=== PATIENT | female | born 1990 | race Hispanic/Latino ===

== ENCOUNTER 2017-03-25 19:31 | Emergency (ER) | payer OTHER ==
[2017-03-25 19:44] VITALS: O2SAT 98
[2017-03-25] MEDS ORDERED: Sodium Chloride 0.9% 1,000 ML IV STA (20:18)
--- NOTE | 2017-03-25 21:21 | ED PDOC ---
HPI: Abdomen Time Seen by Provider: 03/25/17 19:47 Chief Complaint (Nursing): Abdominal Pain Chief Complaint (Provider): Abdominal Pain History Per: Patient Onset/Duration Of Symptoms: Days (x5) Current Symptoms Are (Timing): Still Present Additional Complaint(s): Siena Gallegos is a 26 year old female with a past medical history of ovarian cysts , who presents to the ED complaining of left pelvic pain x5 days. Patient states the pain is persistent, severe, and associated with epigastric pain and nausea. States she has had similar pain in the past on her left or right side due to ovarian cysts, but is concerned due to the associated epigastric pain and nausea. Also reports intermittent diarrhea and dysuria. Denies vaginal bleeding or discharge. States her LMP was 03/04. Says it was a week late and longer than usual. Reports seeing her COMPOSITION PROFESSOR last week and was told everything is normal. PMD: Non-[facility] Provider Past Medical History Reviewed: Historical Data, Nursing Documentation, Vital Signs Vital Signs: Last Vital Signs Temp 98 F 03/25/17 23:45 Pulse 78 03/25/17 23:45 Resp 18 03/25/17 23:45 BP 122/80 03/25/17 23:45 Pulse Ox 98 03/26/17 00:29 - Medical History Other PMH: Ovarian cysts - Surgical History Surgical History: No Surg Hx - Family History Family History: States: Hypertension Other Family History: Ovarian cysts - Social History Current smoker - smoking cessation education provided: No Alcohol: None Drugs: Denies - Home Medications Home Medications: Ambulatory Orders Medication Instructions Recorded Dicyclomine [Bentyl] 10 mg PO QID PRN #10 cap 05/04/16 Ondansetron ODT [Zofran ODT] 4 mg PO Q6 PRN #10 odt 05/04/16 Ondansetron ODT [Zofran ODT] 1 odt PO Q6 PRN #20 odt 03/26/17 - Allergies Allergies/Adverse Reactions: Allergies Allergy/AdvReac Type Severity Reaction Status Date / Time No Known Allergies Allergy Verified 05/03/16 21:25 Review of Systems ROS Statement: Except As Marked, All Systems Reviewed And Found Negative Gastrointestinal: Positive for: Nausea, Abdominal Pain (epigastric), Diarrhea Genitourinary Female: Positive for: Dysuria, Pelvic Pain (left, severe). Negative for: Vaginal Discharge, Vaginal Bleeding Physical Exam - Reviewed Nursing Documentation Reviewed: Yes Vital Signs Reviewed: Yes - Physical Exam Appears: Positive for: In Acute Distress (mild painful) Skin: Positive for: Warm, Dry Gastrointestinal/Abdominal: Positive for: Bowel Sounds, Soft, Tenderness (LLQ and epigastric). Negative for: Mass, Distended, Guarding, Rebound Back: Positive for: Normal Inspection. Negative for: Muscle Spasm Extremity: Positive for: Normal ROM. Negative for: Deformity Lymphatic: Negative for: Adenopathy Neurologic/Psych: Positive for: Alert. Negative for: Motor/Sensory Deficits - Laboratory Results Result Diagrams: 03/25/17 21:09 03/25/17 21:09 - ECG O2 Sat by Pulse Oximetry: 98 (RA) Pulse Ox Interpretation: Normal Medical Decision Making Medical Decision Making: Time: 20:23 Initial Impression: Ovarian cysts. Differential diagnoses include, but are not limited to hemorrhagic rupture of ovarian cysts, torsion of ovarian cyst or ovary, gastritis, pancreatitis Plan: --CMP --Lipase --ED Urine --ED Urine dipstick --CBC w/ differential --Morphine 2 mg IVP --Sodium Chloride 0.9% 1,000 ml --Zofran 4 mg IVP --Pelvis US --Reevaluation 0015 US with LEFT hemorrhagic cyst and free fluid in [place]. Labs unremarkable with no anemia. Vitals stable. DW pt findings and plan of care. Pt eager to go home. Advised to return to ER immediately for worsening pain or fainting or near fainting or any other worrisome symptoms. Otherwise f/u COMPOSITION PROFESSOR [email or web address] Scribe Attestation: Documented by Bert Warren acting as a scribe for Talita Wilburn MD. Scribe Attestation: All medical record entries made by the Scribe were at my direction and personally dictated by me. I have reviewed the chart and agree that the record accurately reflects my personal performance of the history, physical exam, medical decision making, and the department course for this patient. I have also personally directed, reviewed, and agree with the discharge instructions and disposition. Disposition - Clinical Impression Clinical Impression: Hemorrhagic ovarian cyst Counseled Patient/Family Regarding: Studies Performed, Diagnosis, Need For Followup, Rx Given - Disposition Disposition: Routine/Home Disposition Time: 00:26 Condition: STABLE Additional Instructions: FOLLOW UP WITH YOUR HAND REAMER SOON POSSIBLE RETURN TO ER IMMEDIATELY FOR WORSENING SYMPTOMS Prescriptions: Ondansetron ODT [Zofran ODT] 1 odt PO Q6 PRN #20 odt PRN Reason: Nausea/Vomiting Instructions: Ovarian Cyst (ED), Sudheer (ED) Forms: [facility] ED School/Work Excuse
[2017-03-25 21:51] LABS: BASO # 0.1 K/uL (0.0-0.2); BASO % 0.8 % (0.0-2.0); EOS # 0.4 K/uL (0.0-0.7); EOS % 6.5 % (0.0-4.0); HEMATOCRIT 37.1 % (34.0-47.0); LYMPH % 14.9 % (20.0-40.0); MEAN CELL VOLUME 88.5 fl (81.0-99.0); MEAN CORPUSCULAR HEMOGLOBIN 29.2 pg (27.0-31.0); MEAN CORPUSCULAR HGB CONC 32.9 g/dL (33.0-37.0); MEAN PLATELET VOLUME 9.7 fl (7.2-11.7); MONO # 0.8 K/uL (0.0-0.8); MONO % 11.3 % (0.0-10.0); NEUT # 4.4 K/uL (1.8-7.0); NEUT % 66.5 % (50.0-75.0); RED CELL DISTRIBUTION WIDTH 12.5 % (11.5-14.5); WHITE BLOOD COUNT 6.6 K/uL (4.8-10.8)
[2017-03-25 22:10] LABS: ALB/GLOB RATIO 1.4 (1.0-2.1); ALKALINE PHOSPHATASE 40 U/L (38-126); ALT/SGPT 39 U/L (9-52); AST/SGOT 22 U/L (14-36); BILIRUBIN,TOTAL 0.5 mg/dl (0.2-1.3); BLOOD UREA NITROGEN 9 mg/dl (7-17); CALCIUM 9.6 mg/dL (8.4-10.2); CARBON DIOXIDE 24 mmol/L (22-30); CHLORIDE 106 mmol/L (98-107); GFR AFRICAN-AMERICAN > 60; GLUCOSE,RANDOM 95 mg/dL (65-105); LIPASE 37 U/L (23-300); SODIUM 139 mmol/l (132-148); TOTAL PROTEIN 6.6 G/DL (6.3-8.2)
[2017-03-25 22:38] LABS: RBC URINE 2 /hpf (0-3); URINE BACTERIA OCC (<OCC); URINE BILIRUBIN NEGATIVE (NEGATIVE); URINE BLOOD NEGATIVE (NEGATIVE); URINE COLOR YELLOW (YELLOW); URINE GLUCOSE (UA) NEG (Normal); URINE KETONE TRACE mg/dL (NEGATIVE); URINE LEUKOCYTE ESTERASE TRACE Leu/uL (Negative); URINE PROTEIN NEGATIVE (NEGATIVE); URINE UROBILINOGEN 0.2-1.0 mg/dL (0.2-1.0); WBC URINE 1 /hpf (0-5)
[2017-03-26 00:45] VITALS: BP 122/80; PULSE 78; RESP 18; TEMP 98
--- NOTE | 2017-03-26 13:50 | US ---
HISTORY: LEFT pelvic pain COMPARISON: None available. TECHNIQUE: A grayscale, color Doppler and spectral evaluation of the pelvis performed transabdominally. FINDINGS: UTERUS: Measures 7.3 x 3.6 x 5.0 cm. Anteverted. Normal in size and appearance. No fibroid or other mass lesion seen. ENDOMETRIUM: Measures 8 mm in diameter. Unremarkable. CERVIX: No cervical abnormality identified. RIGHT OVARY: Measures 3.1 x 1.5 x 2.5 cm. No solid mass. Normal flow. LEFT OVARY: Measures 4.3 x 2.3 x 3.6 cm. No solid mass. Normal flow. 2.3 x 1.8 x 2.3 centimeter cyst with lacy internal echoes. FREE FLUID: No significant free fluid noted. OTHER FINDINGS: None. IMPRESSION: Left ovarian hemorrhagic cyst.
== END 2017-03-26 00:45 | disposition home or self-care (01) ==
LOC: H.ER 19:31
DX: N83.201 Unspecified ovarian cyst, right side (principal); N94.0 Mittelschmerz
CPT/HCPCS: 76856; 80053; 81003; 81025; 83690; 85025; 87086; 96374; 96375; 99283; J2270; J2405; J7040